=== PATIENT | female | born 1980 | race Caucasian/White ===

== ENCOUNTER 2017-01-26 02:50 | Emergency (ER) | payer MEDICAID, OTHER, SELFPAY ==
[~2017-01-26] VITALS: Ht 167.6 cm; Wt 133.9 kg
[2017-01-26] MEDS ORDERED: ONDANSETRON 2MG/ML, 2ML ONE (03:21)
[2017-01-26] MEDS ORDERED: HYDROmorphone 1 MG/ML, 1ML ONE (03:21)
[2017-01-26] MEDS ORDERED: KETOROLAC 30 MG/1 ML ONE ×2 (03:21→03:47)
[2017-01-26 03:23] LABS: HCG UR OBC PASS
[2017-01-26] MEDS ORDERED: KETOROLAC 30 MG/1 ML IVPush ONE (03:30)
[2017-01-26] MEDS ORDERED: ONDANSETRON 2MG/ML, 2ML IVPush ONE (03:30)
[2017-01-26] MEDS ORDERED: HYDROmorphone 1 MG/ML, 1ML IV ONE (03:30)
[2017-01-26] MEDS ORDERED: SODIUM CHLORIDE FLUSH 10ML SYR IVF ONE (03:30)
[2017-01-26] MEDS ORDERED: SODIUM CHLORIDE 0.9% 1,000ML IVBOLUS ONE (03:30)
[2017-01-26 04:28] LABS: ASPARTATE AMINO TRANSFERASE 13 U/L (15-37); BLOOD UREA NITROGEN 10 mg/dL (7-18)
[2017-01-26] MEDS ORDERED: KETOROLAC 30 MG/1 ML IM ONE (04:30)
[2017-01-26 04:44] VITALS: BP 120/71
[2017-01-26] MEDS ORDERED: CIPROFLOXACIN 500 MG TABLET ONE (05:16)
[2017-01-26] MEDS ORDERED: metroNIDAZOLE 500 MG TABLET ONE (05:16)
[2017-01-26] MEDS ORDERED: metroNIDAZOLE 500 MG TABLET PO ONE (05:30)
[2017-01-26] MEDS ORDERED: CIPROFLOXACIN 500 MG TABLET PO ONE (05:30)
== END 2017-01-26 05:33 | disposition home or self-care (01) ==
LOC: ED 02:59
DX: K57.32 Diverticulitis of large intestine without perforation or abscess without bleeding (principal)
CPT/HCPCS: 36415; 74176; 80053; 81001; 81025; 83690; 85025; 96372; 96374; 96375; 99285; J1170; J1885; J2405

== ENCOUNTER 2018-12-31 18:39 | Emergency (ER) | payer MEDICAID ==
[~2018-12-31] VITALS: Ht 170.2 cm; Wt 144.6 kg
--- NOTE | 2018-12-31 19:00 | NUR ---
FIRST CONTACT WITH PT. PT STATES 19-20 WEEKS BLEEDING STARTING TODAY. OB IS [facility]. LMP AUG 21. L&D CALLED IN TRIAGE PER THEM STAY IN ER FOR NOW. G5, P2. PT'S AOX4. RESPS EVEN AND UNLABORED. PT DENIES ANY PAIN/CRAMP AT THIS TIME. EDMD AT BEDSIDE TO ASSESS.
[2018-12-31 19:16] LABS: BASOPHILS # (AUTO) 0.08 x10^3/uL (0-0.1); BASOPHILS % (AUTO) 1 % (0-1); EOSINOPHILS # (AUTO) 0.24 x10^3/uL (0-0.4); EOSINOPHILS % (AUTO) 2 % (1-7); LYMPHOCYTES # (AUTO) 1.77 x10^3/uL (1-3.4); LYMPHOCYTES % (AUTO) 16 % (22-44); MD NO; MEAN CORPUSCULAR HEMOGLOBIN 30.6 pg (27.0-34.8); MEAN CORPUSCULAR VOLUME 89.8 fL (80-100); MEAN PLATELET VOLUME 7.5 fL (7.4-10.4); MONOCYTES # (AUTO) 0.55 x10^3/uL (0.2-0.8); MONOCYTES % (AUTO) 5 % (2-9); NEUTROPHILS # (AUTO) 8.16 x10^3/uL (1.8-6.8); NEUTROPHILS % (AUTO) 76 % (42-75); PLATELET COUNT 325 x10^3/uL (130-400); RED CELL DISTRIBUTION WIDTH 14.7 % (9.6-15.2)
[2018-12-31 19:29] LABS: ALANINE AMINOTRANSFERASE 21 U/L (12-78); ALBUMIN 3.2 g/dL (3.4-5.0); ANION GAP 8 mmol/L (5-15); CALCIUM 8.9 mg/dL (8.5-10.1); CHLORIDE 106 mmol/L (98-107); CREATININE 0.59 mg/dL (0.55-1.02)
--- NOTE | 2018-12-31 19:36 | NUR ---
PT BACK TO ROOM FROM US.
[2018-12-31 19:45] LABS: ALKALINE PHOSPHATASE 48 U/L (45-117); BILIRUBIN,TOTAL 0.4 mg/dL (0.2-1.0)
[2018-12-31 20:19] LABS: MICROSCOPIC INDICATED
[2018-12-31 20:45] LABS: CULTURE INDICATED? YES
[2018-12-31 20:52] VITALS: BP 137/75
--- NOTE | 2018-12-31 20:58 | NUR ---
PT GIVEN DC INSTRUCTIONS. EMT TOOK HER TO L&D FOR FURTHER EVALUATION AT DC. PT'S AOX4. RESPS EVEN AND UNLABORED. NO ACUTE DISTRESS AT DC.
== END 2018-12-31 20:59 | disposition home or self-care (01) ==
LOC: ED 19:25
DX: O20.0 Threatened abortion (principal); Z3A.19 19 weeks gestation of pregnancy; O16.9 Unspecified maternal hypertension, unspecified trimester
CPT/HCPCS: 36415; 76815; 80053; 81001; 84550; 84702; 85025; 86901; 87086; 99284

== ENCOUNTER 2018-12-31 20:58 | Outpatient (CLI) | payer MEDICAID ==
[~2018-12-31] VITALS: Ht 170.2 cm; Wt 144.0 kg
[2018-12-31 21:39] LABS: AMPHETAMINE SCREEN, URINE Negative (Negative); BARBITURATE SCREEN, URINE Negative (Negative); BENZODIAZEPINE SCREEN, URINE Negative (Negative); CANNABINOID SCREEN, URINE Negative (Negative); COCAINE SCREEN, URINE Negative (Negative); METHADONE SCREEN, URINE Negative (Negative); OPIATE SCREEN, URINE Negative (Negative)
[2018-12-31 21:41] LABS: MICROSCOPIC AUTO
== END 2018-12-31 22:10 | disposition home or self-care (01) ==
LOC: LDOP 20:58
PROVIDERS: ATTEND Obstetrics & Gynecology
DX: O46.92 Antepartum hemorrhage, unspecified, second trimester (principal); Z3A.22 22 weeks gestation of pregnancy
CPT/HCPCS: 59025; 80307; 81001; 87086; G0463